=== PATIENT | female | born 1985 | race Asian ===

== ENCOUNTER 2018-09-20 20:23 | Emergency (ER) | payer BC ==
[~2018-09-20] VITALS: Ht 165.1 cm; Wt 70.0 kg
[2018-09-20 20:34] VITALS: TEMP 97.8
[2018-09-20 21:48] LABS: COLLECTION METHOD CLEAN CATCH
[2018-09-20 21:54] LABS: PH 7 (5-8); SQUAMOUS EPITHELIAL 0-2 /hpf; URINE APPEARANCE Clear; URINE BACTERIA Rare /hpf; URINE BILIRUBIN Negative (NEGATIVE); URINE BLOOD Negative (NEGATIVE); URINE COLOR Straw; URINE GLUCOSE Negative (NEGATIVE); URINE KETONE Negative (NEGATIVE); URINE LEUKOCYTE ESTERASE Trace (NEGATIVE); URINE NITRATE Negative (NEGATIVE); URINE PROTEIN(semi-quant) Negative (NEGATIVE); URINE RBC 0-2 /hpf; URINE UROBILINOGEN Negative (NEGATIVE)
[2018-09-20 22:34] VITALS: BP 103/55; PULSE 78
== END 2018-09-20 22:34 | disposition home or self-care (01) ==
LOC: COL.ER 20:23
PROVIDERS: Emergency Medicine
DX: O26.892 Other specified pregnancy related conditions, second trimester (principal); R10.2 Pelvic and perineal pain; Z3A.19 19 weeks gestation of pregnancy

== ENCOUNTER 2019-02-08 19:37 | Outpatient (CLI) | payer BC ==
[~2019-02-08] VITALS: Ht 167.6 cm; Wt 85.0 kg
--- NOTE | 2019-02-08 19:45 | NUR ---
1944- PATIENT ARRIVED TO L&D WITH C/O OF ABDOMINAL PRESSURE AND DIFFICULTY TAKING A DEEP BREATH. PATIENT STATES THAT SHE HAS FELT THE BABY MOVE A LITTLE LESS THAN USUAL TODAY. 1953- EFM APPLIED TO PATIENT. 1999- VSS WITH SPO2 READING AT 98%. 2006- SVE /-2 AND INTACT. WITH 1 NOTED CONTRACTION ON THE MONITOR WITH NO PAIN STIMULATION TOWARDS PATIENT. 2016- DR. ETIENNE NOTIFIED AT THIS TIME. DISCHARGE ORDERS RECEIVED.
[2019-02-08 19:47] VITALS: BP 110/60; PULSE 79; TEMP 97.9
[2019-02-08] MEDS ORDERED: CLARITIN 1010 MG/TAB PO (19:52)
[2019-02-08] MEDS ORDERED: PRENATAL 191 TAB PO (19:52)
[2019-02-08 20:10] VITALS: BP 110/60; PULSE 79; TEMP 97.9
== END 2019-02-08 20:40 | disposition home or self-care (01) ==
LOC: LDRO 19:37
DX: O26.893 Other specified pregnancy related conditions, third trimester (principal); R06.00 Dyspnea, unspecified; Z3A.38 38 weeks gestation of pregnancy

== ENCOUNTER 2019-02-14 20:57 | Inpatient (IN) | payer BC ==
[2019-02-14] VITALS (11 sets, daily range): BP systolic 106–123; BP diastolic 56–75; PULSE 74–96; TEMP 98.1
[~2019-02-14] VITALS: Ht 167.6 cm; Wt 85.9 kg
[~2019-02-14 20:57] MED LIST: CLARITIN 1010 MG/TAB PO; PRENATAL 191 TAB PO
--- NOTE | 2019-02-14 21:45 | NUR ---
2140- Shweta WADSWORTH CRNA IN ROOM FOR EPIDURAL PLACEMENT. 2144- PT SITTING UP AT BEDSIDE FOR EPIDURAL PLACEMENT. 2146- FHT'S NOT TRACING DUE TO MATERNAL POSITION FOR EPIDURAL PLACEMENT, ATTEMPTING TO ADJUST AND HOLD IN PLACE. FM AUDIBLE ON US. 2147- SINGLE SHOT GIVEN BY Shweta WADSWORTH CRNA. PT TOLERATED WELL. 2152- PT REPOSTIONED INTO SEMIFOWLERS FOLLOWING EPIDURAL PLACEMENT.
[2019-02-14 22:07] LABS: BASO % 0.1 % (0.0-2.0); EOS # 0.1 (0.0-0.7); EOS % 0.6 % (0-4.0); GRAN # 6.2 (1.4-6.5); GRAN % 71.4 % (42.2-75.2); HEMATOCRIT 38.3 % (37.0-47.0); HEMOGLOBIN 13.2 g/dl (12.5-16.0); LYMPH # 1.8 (1.2-3.4); LYMPH % 20.8 % (20.0-51.0); MEAN CELL VOLUME 92 fl (80.0-100.0); MEAN CORPUSCULAR HEMOGLOBIN 32 pg (27.0-31.0); MEAN CORPUSCULAR HGB CONC 35 g/dl (33.0-37.0); MEAN PLATELET VOLUME 12.4 fl (7.4-10.4); MONO # 0.6 (0.1-0.6); MONO % 6.5 % (1.7-9.3); PLATELET COUNT 170 K/mm3 (130-400); RED BLOOD COUNT 4.16 M/mm3 (4.10-5.30); REDCELL DISTRIBUTION WIDTH-CV 13.9 % (11.5-14.5)
[2019-02-15] VITALS (38 sets, daily range): BP systolic 78–126; BP diastolic 43–73; PULSE 69–109; TEMP 98–98.8
--- NOTE | 2019-02-15 03:35 | NUR ---
0246- SVE OF COMPLETE/+1 0249- PT BEGINS PUSHING WITH THIS NURSE. 0306- PT PUSHING WELL, DR RIBERA NOTIFIED OF IMPENDING DELIVERY AND OF FHT'S DROPPING TO THE 90'S WITH PUSHING AND TAKING SEVERAL MINUTES TO IMPROVE TO BASELINE OF 120. WILL COME FOR DELIVERY AND ASSESS NEED FOR VAC ASSISTED DELIVERY. 0318- WILEY DC'D, 550 MLS YELLOW URINE OUT. PERICARE PROVIDED. 0328- DR. RIBERA IN ROOM FOR DELIVERY. DISCUSSES USE OF VAC TO ASSIST WITH DELIVERY, PT AND SPOUSE VERBALIZED UNDERSTANDING. 0332- VAC APPLIED. 0333- VAC ASSISTED DELIVERY OF VIABLE BABY BOY. CORD CLAMPED BY DR. RIBERA AND CUT BY FOB. BABY TO MOTHER'S ABDOMEN, BABY CARES ASSUMED BY Lew SILVA RN. 0335- SPONTANEOUS DELIVERY OF INTACT PLACENTA. PITOCIN STARTED PER PROTOCOL. DR. RIBERA BEGINS REPAIR OF 2ND DEGREE LACERATION. RECOVERY STARTED.
--- NOTE | 2019-02-15 06:20 | NUR ---
0620-Recieved report from NANCY Plata. Patient resting in bed with family at bedside. BP reading 85/43. Patient reports feeling "a little faint" BP IVF bolus started. Fundal massage firm, locbethanya WNL. 0635-Spouse notifies RN patient still feeling "faint" and BP alarming low. BP 82/45. Fundal massage frim. Alec WNL. 0643-Notified MD of patients low BP readings. See physician notification. 0700-Patient unable to void, Straight cath by this RN per protocol and orders. 300ml Clear yudy urine, erickson care provided. 08-BP 107/53, patient reports "I am feeling better." Reviewed plan of care. Encouraged to eat breakfast. 939-Infant to breast. RN assist with latch, awaiting breakfast tray.
[2019-02-16 07:07] VITALS: BP 92/49; PULSE 76; TEMP 97.9
[2019-02-16 16:00] VITALS: BP 99/58; PULSE 87; TEMP 98.7
[2019-02-16 20:30] VITALS: BP 102/60; PULSE 83; TEMP 98.4
[2019-02-17 07:00] VITALS: BP 103/71; PULSE 83; TEMP 97.4
[2019-02-17] MEDS ORDERED: IBU800 M1 PO (08:46)
--- NOTE | 2019-02-17 10:00 | NUR ---
Rests in bed, alert. labor relations consultant here working with patient.
--- NOTE | 2019-02-17 11:00 | NUR ---
Rests in bed, alert. Discharge instructions given, verbalizes understanding.
== END 2019-02-17 11:50 | disposition home or self-care (01) | DRG 807 ==
LOC: LDRO 20:57 → LDR 22:22 → OB 02-15 13:26
PROVIDERS: ADMIT Obstetrics & Gynecology
PROC: 10D07Z6 Extraction of Products of Conception, Vacuum, Via Natural or Artificial Opening (ICD-10-PCS; principal; 2019-02-15)
PROC: 0KQM0ZZ Repair Perineum Muscle, Open Approach (ICD-10-PCS; 2019-02-15)
DX: O99.824 Streptococcus B carrier state complicating childbirth (principal); Z37.0 Single live birth; Z3A.39 39 weeks gestation of pregnancy; O76 Abnormality in fetal heart rate and rhythm complicating labor and delivery; O70.1 Second degree perineal laceration during delivery
CPT/HCPCS: J2540; J2590; J2795; J7120

== ENCOUNTER → 2019-02-18 | Outpatient (CLI) | payer BC ==
[~2019-02-18] MED LIST changes: +IBU800 M1 PO
--- NOTE | 2019-02-18 11:54 | NUR ---
Pt, Ashleigh Gordon, presents for walk-in clinic with 3 day old baby boy, iAde Gordon, her mother and her spouse, after Aide was seen for repeat bilirubin and was referred to clinic for latching difficulty and jaundice. Aide was born [birth year] by and weighed 8#2.3oz (3695 gms). This LC is familiar with the family from their inpatient stay after . Discharge weight on 02/17/19 was 7#7oz (3385 gms). They were assisted and instructed on with SNS day of discharge. Today Aide weighs 7#6.9oz (3372 gms) for a loss of 8.75% from . He has had two voids and two stools in the last 24 hours. He has been supplemented and average of 12 ml formula per feeding in the last 24 hours, eating 9 or more times. He is jaundice in appearance to his lower abdomen/thighs, he cries vigerously while on the scale. Pt timid about bringing Aide to the breast when he opens; assisted with pushing him to the breast and he latches quickly. Occassional swallows noted, mild firmness noted in some areas of the breast. After nursing bilaterally Aide had a post feed weight gain 14gms. Pt and family advised to supplement 30ml EBM or formula by bottle after each . Family is notified by Dr. Nieto while in the consult that Aide will be re-admitted for phototherapy. Pt and family escorted to pt room 218. Pt instructed on pumping, equipment and cleaning reviewed. POC: Breastfeed q 2-3 hours, follow with supplement 30ml EBM or formula, then pump x15min after . F/U: Pending phototherapy treatment, anticipate seeing family during rounds. Questions invited and answered. 3-step feeding plan handout provided.
== END ==
LOC: LAC 09:38
DX: Z39.1 Encounter for care and examination of lactating mother (principal); Z71.89 Other specified counseling

== ENCOUNTER → 2019-02-21 | Outpatient (CLI) | payer BC ==
--- NOTE | 2019-02-21 12:32 | NUR ---
Pt, Ashleigh Gordon, presents for outpatient consult with 6 day old baby boy, Chencho Gordon and her spouse and mother. They are following up post discharge of Chencho's treatment of hyperbilirubinemia and difficult . Chencho was born on [birth year] and weighed 8#2.3oz (3694 gms). At discharge from phototherapy on 02/19/19 Chencho weighed 7#10oz, and family reports his weight yesterday with Dr. Nieto to be 7#12oz. Today Chencho weighs 7#14oz (3582 gms). Family reports Chencho gets sleepy after one breast, it takes them upto 1.5 hours to feed him with the waking between sides, and supplementing. Chencho is supplemented 20-50ml of EBM and formula. Pt pumps after most feedings collecting 20-35ml. He had 10 voids and 8 stools (small to medium) yesterday. Pt is not assisted with at this consult, however her mother assists to keep infant on task once latched. After the left breast Chencho had a weight gain of 28 gms, and the right a gain of 38 gms. He is placed back to the left breast a second time since he usually gets supplemented, and gained an additional 6gms for a total intake of 72 ml (2.3oz). POC: Breastfeed bilaterally, offer 1st breast a second time if Chencho is still acting hungry or supplement EBM. Expect to see Chencho eat a little more frequently and more attentive for the second breast without the routine supplement. Pt may continue pumping after if Chencho is needing the supplement, otherwise can discontinue pumpiong as well. F/U: Family advised to return to walk-in clinic next Sunday for at least a weight check, feed if desired. Questions invited answered, family verbalizes understanding.
== END ==
LOC: LAC 12:08
DX: Z39.1 Encounter for care and examination of lactating mother (principal); Z71.89 Other specified counseling

== ENCOUNTER → 2019-02-25 | Outpatient (CLI) | payer BC ==
--- NOTE | 2019-02-25 12:35 | NUR ---
Pt, Ashleigh Gordon, presents to walk-in clinic with 10 day old baby boy, Chencho Gordon, and her mother for a evaluation. They have been seen by this LC in clinic because of weight loss and jaundice. Today she reports he has not latched onto the right side well. Chencho was born on [birth year] and weighed 8#2.3oz (3694 gms). At our previous consult on 02/21/19 Chencho weighed 7#14oz (3572 gms). Today Chencho weighs 8#3oz (3714 gms) for a gain of 5oz over the last 4 days. Supplement since previous consult has been reduced to 20-30ml x1 daily. Voids and stools are numerous. Pt pumps prn. One day Chencho only breastfed 6 times as he will sleep 4-4.5 hours at [facility]. Advised to wake at four hours to try to get enough feedings in per day. Pt places Chencho to nurse on the side, LC advises on hand support to help compress areola into his mouth with latch. Chencho is latched, pt's mother asked to assist with pulling his chin down for more open mouth. Chencho engages his effort and he starts having frequent swallows. After 20 minutes he is removed from the breast, he has a weight gain of 78 gms (2.8oz. He nurses the left breast four minutes and has a gain of 16 gms (0.5oz) for a total gain of 94gms (3.3oz). Pt reassured is effective, Chencho is gaining weight as desired, intake is adequated, she should not need to supplement. Also advised to let Chencho finish the first breast (indicators reviewed) before removing him for the second breast. POC: Breastfeed ad lizy, trying to get 7+ feedings per day. F/U: Clinic as desired. Questions invited and answered.
== END ==
LOC: LAC 10:28
DX: Z39.1 Encounter for care and examination of lactating mother (principal); Z71.89 Other specified counseling

== ENCOUNTER → 2019-05-20 | Outpatient (CLI) | payer BC ==
--- NOTE | 2019-05-20 13:52 | NUR ---
Pt, Eugeine Gordon, presents to walk-in clinic with 3 month old baby boy, Chencho Gordon with concerns about breast pain. She states Chencho is nursing well, gaining weight but recently was not able to pump at work and since has had breast pain. Chencho was born on [birth year] and weighted 8#2.3oz. Today his weight is 16#2.6oz. Upon examination of the right breast it is noted to be firm, warm and tender to touch between the 3 and 6 o'clock position. Petichiae noted to the region as well. Pt states since she reunited with Chencho after the missed pumping she is nursing him frequently, especially on the right breast but the pain is increasing. Pt denies fever or chills at this time. This LC advises pt on comfort measures for breast pain, and report called to Dr. Melton' office with request for appointment. Pt verbalizes understanding, questions invited and answered.
== END ==
LOC: OLC 11:30
DX: Z39.1 Encounter for care and examination of lactating mother (principal)

== ENCOUNTER 2020-08-10 13:18 | Emergency (ER) | payer BC ==
[~2020-08-10] VITALS: Ht 167.6 cm; Wt 67.3 kg
[2020-08-10 13:32] VITALS: BP 113/76; TEMP 97.9
[2020-08-10 15:50] VITALS: PULSE 74
== END 2020-08-10 15:50 | disposition home or self-care (01) ==
LOC: COL.ER 13:18
DX: T17.208A Unspecified foreign body in pharynx causing other injury, initial encounter (principal)

== ENCOUNTER 2021-02-09 09:19 | Day surgery (SDC) | payer BC ==
[~2021-02-09] VITALS: Ht 165.1 cm; Wt 65.0 kg
[2021-02-09 10:50] VITALS: BP 94/68; PULSE 59; TEMP 97
[2021-02-09 11:05] VITALS: BP 92/65; PULSE 50
[2021-02-09 11:20] VITALS: BP 95/70; PULSE 52
--- NOTE | 2021-02-09 11:48 | NUR ---
1050- Pt returns from endo procedure via cart and RN assist to [facility] [place] [facility]. Pt ambulates from cart to recliner with RN assist. Monitors on and alarms set. Call light within reach. Pt alert and oriented. Pt requests water and crackers. Pt denies any pain or nausea. 1105- Pt taking food and drink well. No complications noted. 1120- Discharge instructions given to pt. All questions answered to patient and 's satisfaction. Handed to pt education material and discharge information. 1148- Pt transferred out of the hospital via wheelchair and NANCY Mehta assist, to private vehicle driven by .
[2021-02-09 15:08] VITALS: BP 96/51; PULSE 62; TEMP 97.9
== END 2021-02-09 11:48 | disposition home or self-care (01) ==
LOC: SDCO 09:19
DX: Z12.11 Encounter for screening for malignant neoplasm of colon (principal); K62.89 Other specified diseases of anus and rectum; Z86.010 Personal history of colon polyps; Z83.71 Family history of colonic polyps; Z79.899 Other long term (current) drug therapy; Z82.49 Family history of ischemic heart disease and other diseases of the circulatory system
CPT/HCPCS: J2704; J7120

== ENCOUNTER 2022-08-29 08:36 | Inpatient (IN) | payer BC ==
[2022-08-29] VITALS (14 sets, daily range): BP systolic 95–112; BP diastolic 50–66; PULSE 67–90; TEMP 98–98.4
[~2022-08-29] VITALS: Ht 165.1 cm; Wt 84.1 kg
--- NOTE | 2022-08-29 08:45 | NUR ---
0845: PT AMBULATORY TO LR6 WITH SPOUSE. CHANGED INTO CLEAN GOWN. FHR MONITOR/TOCO APPLIED. PT DENIES ANY LEAKING OF FLUID, VAGINAL BLEEDING, OR DECREASED MOVEMENT. PT CAME IN COMPLAINING OF CONTRACTIONS. 0905: SVE 0 BY Minh VAZ RN
[2022-08-29 09:22] LABS: BASO % 0.3 % (0.0-2.0); EOS # 0.1 K/mm3 (0.0-0.7); EOS % 0.9 % (0.0-4.0); GRAN % 80.4 % (42.2-75.2); HEMATOCRIT 37.8 % (37.0-47.0); HEMOGLOBIN 12.8 g/dl (12.5-16.0); LYMPH # 1.6 K/mm3 (1.2-3.4); LYMPH % 14.1 % (20.0-51.0); MEAN CELL VOLUME 90 fl (80.0-100.0); MEAN CORPUSCULAR HEMOGLOBIN 31 pg (27-31); MEAN CORPUSCULAR HGB CONC 34 g/dl (33.0-37.0); MEAN PLATELET VOLUME 11.6 fl (7.4-10.4); MONO # 0.4 K/mm3 (0.1-0.6); MONO % 3.8 % (1.7-9.3); PLATELET COUNT 201 K/mm3 (130-400); RED BLOOD COUNT 4.18 M/mm3 (4.10-5.30); REDCELL DISTRIBUTION WIDTH-CV 14.6 % (11.5-14.5)
--- NOTE | 2022-08-29 09:30 | NUR ---
0910: DR. ETIENNE ON UNIT A MILIND CRUZ GIVES REPORT. 0920: SVE BY DR. ETIENNE WITH BULGING BAG
--- NOTE | 2022-08-29 10:40 | NUR ---
1005: SVE BY DR. RODRIGUEZ /+2 DR. ETIENNE, Minh VAZ RN, THIS RN, Shankar DALE RN AT BEDSIDE. 1012: PT BEGINS PUSHING WITH CONTRACTIONS 1026: SPONTANEOUS VAGINAL DELIVERY OF VIABLE FEMALE . INFANT BULB SUCTIONED AND STIMULATED. CORD CLAMPED BY DR. ETIENNE, CORD CUT BY FOB. INFANT TO MOTHER'S CHEST FOR SKIN TO SKIN. Shankar DALE RN TAKES OVER CARE OF . 1031: SPONTANEOUS DELIVERY OF PLACENTA. PITOCIN BOLUS STARTED PER PROTOCOL. FIRST DEGREE PERINEAL LACERATION NOTED AND REPAIRED BY DR. ETIENNE. FUNDAL MASSAGE COMPLETED. FIRM, MIDLINE, SMALL AMOUNT OF BLEEDING NOTED. ION CARE COMPLETED. PT REPOSITIONED, CLEAN PAD PLACED. SAFETY PRECAUTIONS AND POC DISCUSSED. PT VERBALIZES UNDERSTANDING.
--- NOTE | 2022-08-29 13:00 | NUR ---
PT UP TO BATHROOM INDEPENDENTLY. VOIDS 900CC. PERICARE DONE. CLEAN PAD AND UNDERWEAR PLACED. CHANGED INTO CLEAN GOWN. PT AMBULATES TO 208. PT ORIENTED TO ROOM. CALL LIGHT WITHIN REACH.
--- NOTE | 2022-08-29 13:27 | NUR ---
report given to lisa mooney at this time
[2022-08-30 03:05] VITALS: BP 106/48; PULSE 72; TEMP 97.6
[2022-08-30 08:00] VITALS: BP 108/66; PULSE 87; TEMP 97.9
[2022-08-30] MEDS ORDERED: IBU600 MG PO (09:27)
== END 2022-08-30 12:30 | disposition home or self-care (01) | DRG 807 ==
LOC: LDRO 08:36 → OB 09:11 → LDR 09:11 → OB 13:00
PROVIDERS: ADMIT Obstetrics & Gynecology
PROC: 10E0XZZ Delivery of Products of Conception, External Approach (ICD-10-PCS; principal; 2022-08-29)
PROC: 0HQ9XZZ Repair Perineum Skin, External Approach (ICD-10-PCS; 2022-08-29)
DX: O70.0 First degree perineal laceration during delivery (principal); Z37.0 Single live birth; Z3A.38 38 weeks gestation of pregnancy; Z23 Encounter for immunization
CPT/HCPCS: J2590; J3010; J7120